=== PATIENT | female | born 1955 | race African-American/Black ===

== ENCOUNTER 2016-07-08 08:25 | Day surgery (SDC) | payer OTHER ==
[2016-07-07 15:57] VITALS: BMI 23.2
[2016-07-08] MEDS ORDERED: PROPOFOL 20 ML ONE (08:40)
[2016-07-08] MEDS ORDERED: ROCURONIUM BROMIDE 50 MG/5 ML VIAL ONE ×2 (08:42→10:56)
[2016-07-08] MEDS ORDERED: SUCCINYLCHOLINE CHLORIDE 200 MG/10 ML VIAL ONE (08:42)
[2016-07-08] MEDS ORDERED: LIDOCAINE HCL/PF 2% SDV 5ML VIAL ONE (08:42)
[2016-07-08] MEDS ORDERED: ATROPINE SO4 0.4 MG/1 ML VIAL ONE (08:43)
[2016-07-08] MEDS ORDERED: MIDAZOLAM HCL 2 MG/2 ML SINGLE DOSE VIAL ONE (09:35)
[2016-07-08] MEDS ORDERED: ceFAZolin SODIUM 1 GM VIAL ONE ×2 (10:00→14:39)
[2016-07-08] MEDS ORDERED: DEXAMETHASONE SOD PHOSPHATE 4 MG/1 ML VIAL ONE ×2 (10:01→13:13)
[2016-07-08] MEDS ORDERED: ONDANSETRON 4 MG/2 ML VIAL ONE ×2 (10:01→13:13)
[2016-07-08] MEDS ORDERED: ePHEDrine SULFATE 50 MG/1 ML AMPULE ONE (10:06)
[2016-07-08] MEDS ORDERED: HYDROmorphone HCL/PF 1 MG/ML VIAL (FOR PYXIS CHARGING ONLY) ONE (10:33)
[2016-07-08] MEDS ORDERED: ONDANSETRON 4 MG/2 ML VIAL IVPUSH PRN (10:37)
[2016-07-08] MEDS ORDERED: LACTATED RINGERS SOLUTION 1,000 ML IV SCH ×2 (10:45→14:00)
[2016-07-08] MEDS ORDERED: NEOSTIGMINE METHYLSULFATE 0.5 MG/ML - 10 ML MDV ONE (11:41)
[2016-07-08] MEDS ORDERED: GLYCOPYRROLATE 0.2 MG/1 ML VIAL ONE ×2 (11:43)
[2016-07-08] MEDS ORDERED: hydrALAZINE HCL 20 MG/ML VIAL ONE (12:02)
[2016-07-08] MEDS ORDERED: ONDANSETRON 4 MG/2 ML VIAL IVPB PRN (13:59)
[2016-07-08] MEDS ORDERED: morphine CARPU-JECT 10 MG/1 ML DISP.SYRIN IM PRN (14:00)
[2016-07-08] MEDS ORDERED: amLODIPine BESYLATE 5 MG TABLET (FP) PO PRN (14:04)
[2016-07-08] MEDS ORDERED: PROMETHAZINE HCL 25 MG/1 ML VIAL ONE (14:59)
--- NOTE | 2016-07-08 15:13 | SURG ---
Surgery Grubber Note Grubber: Royer Partida PA-C Date of Service: 07/08/16 Diagnosis: symptomatic macromastia Procedure: Bilateral breast reduction I was present for the entirety of the operative procedure. For further detail, please refer to operative report. Visit type - Case Type Case Type: Scheduled Admission - New patient This patient is new to me today: Yes Date on this admission: 07/08/16
[2016-07-08] MEDS ORDERED: PROMETHAZINE HCL 25 MG/1 ML VIAL IVPUSH ONE (15:30)
[2016-07-08] MEDS: CEFAZOLIN 1 GM/D5W 50 ML IVPB SCH ×2 (16:34→20:39)
[2016-07-08] MEDS: oxyCODONE HCL 5 MG TABLET PO PRN (20:40)
[2016-07-09] MEDS: oxyCODONE HCL 5 MG TABLET PO PRN ×2 (01:45→08:25)
--- NOTE | 2016-07-09 02:12 | OP ---
DATE OF OPERATION: 07/08/2016 PROCEDURE: Bilateral reduction mammoplasty. PREOPERATIVE DIAGNOSIS: Bilateral symptomatic macromastia. POSTOPERATIVE DIAGNOSIS: Bilateral symptomatic macromastia. DESCRIPTION OF PROCEDURE: Patient is marked for a McKissock style bipedicle-wood type pattern reduction. Nipple said to be 21 cm from the sternal notch bilaterally, marked in the holding area. Awake and aware of all incisions and resulting scars. Brought to the operating room, 1 g of Ancef was given preoperatively. Sequential compression stockings were applied. KELSEY hose were applied. Pressure points were carefully padded. Position checked by surgical anesthesia team. After anesthesia, she was prepped and draped in the standard surgical fashion. A timeout was called. The patient, procedure, side, and site verified. The nipples are traced with a 45-mm cookie cutter with the breast tourniquet. An 8-cm wide pedicle is de-epithelialized, which is continuous with the superior and inferior skin. The nipple areola is preserved after which a resection of skin and glandular tissue between pedicle and the resection pattern is then performed, first on the right side. Superior glandular tissue is removed; however, leaving a 2-cm width bridge of dermis and subdermal plexus between the superior pattern of skin and the nipple areola. A size 10 flat LOIS drain was brought in through the lateral extent of the incision. The skin is talar tacked in preparation for closure. Mirror image procedure was then performed on the left side. The resection weights, after which are on the right 214 g and the left 265 g. Both wounds were copiously irrigated with normal saline. Meticulous hemostasis is performed. Closure is then performed with a half-buried mattress 2-0 nylon suture at the inverted T-point. The vertical and horizontal limbs are closed with a series of buried deep dermal 3-0 Monocryl suture followed by a running subcuticular 3-0 Monocryl suture. The nipple areola was then set with a series of interrupted buried deep dermal 4-0 Monocryl suture followed by a running subcuticular 4-0 Monocryl suture. Please note that prior to closure, the pedicle was pexy in position along the medial portion of the breast with good medial fullness. Nipples are pink and viable prior to closure. The patient was dressed with 0.5-inch Steri-Strips, ABD gauze, and surgical bra. Drains were placed to bulb suction. Transferred to the recovery room without complication after being awoken. RIKY PAULSON M.D. COREY/[id number]
[2016-07-09] MEDS: CEFAZOLIN 1 GM/D5W 50 ML IVPB SCH ×2 (02:39→08:24)
[2016-07-09] MEDS ORDERED: NALOXONE HCL 0.4 MG/ML VIAL ONE (09:04)
--- NOTE | 2016-07-09 09:22 | RAPID ---
Physical Examination Vital Signs: Vital Signs Temperature 98.8 F 07/09/16 08:50 Pulse Rate 90 07/09/16 08:50 Respiratory Rate 18 07/09/16 08:50 Blood Pressure 106/62 07/09/16 08:50 O2 Sat by Pulse Oximetry (%) 97 07/09/16 06:31 Constitutional: Yes: Well Nourished, No Distress, Calm Eyes: Yes: WNL, Conjunctiva Clear, EOM Intact HENT: Yes: WNL, Atraumatic, Normocephalic Neck: Yes: WNL, Supple, Trachea Midline Cardiovascular: Yes: WNL, Regular Rate and Rhythm, S1, S2 Respiratory: Yes: WNL, Regular, CTA Bilaterally Gastrointestinal: Yes: WNL, Normal Bowel Sounds, Soft ...Rectal Exam: Yes: Deferred Breast(s): Yes: Other (billateral breast surgical site, clean dry and intact, no drainage noted, LOIS # 1, serrous sangeneous draingage LOIS #2 serrous sangenous drainage) Musculoskeletal: Yes: WNL Extremities: Yes: WNL Edema: No Rapid Response - Rapid Response Assessment: called to bedside, rapid response, as per Peggy YANG, Patient was ambulating to bathroom, she became lightheaded and lost consciousness for approximately 15 seconds. No seizure activity noted. arrived at bedside patient alert awake oriented 3, reports feeling well diaphoretic Outcome: patient returned to baseline Recommendations/Interventions: CBC and EKG CBC, BMP 07/09/16 09:33 EKG, nsr no ischemic changes noted Primary Physician Notified: Nicolás Napoles Time PMD Notified: 09:00 Critical Care Total Critical Care Time (in minutes): 45 Critical Care Statement: The care of this patient involved high complexity decision making to prevent further life threatening deterioration of the patient 's condition and/or to evalute & treat vital organ system(s) failure or risk of failure.
[2016-07-09 09:49] LABS: BASOPHIL 0.4 % (0-2.0); EOSINOPHIL 0.4 % (0-4.5); MCHC 31.5 g/dl (32.0-36.0); MEAN CELL VOLUME 88.9 fl (80-96); MEAN PLT VOLUME 7.6 fl (7.5-11.1); NEUTROPHILS 67.9 % (42.8-82.8); PLATELET COUNT 245 K/MM3 (134-434); WHITE BLOOD COUNT 10.2 K/mm3 (4.0-10.0)
--- NOTE | 2016-07-09 10:25 | PN ---
Progress Note (short form) - Note Progress Note: 60 F POD1 s/p b/l breast reduction under GA-ETT doing well. Pt had a pre- syncopal episode earlier today, feels better after IVF and oral intake. AVSS, pt states pain is well controlled, reports no anesthetic complications.
--- NOTE | 2016-07-09 10:48 | EKG ---
Test Reason : Blood Pressure : / mmHG Vent. Rate : 087 BPM Atrial Rate : 087 BPM P-R Int : 162 ms QRS Dur : 080 ms QT Int : 380 ms P-R-T Axes : 051 020 026 degrees QTc Int : 457 ms NORMAL SINUS RHYTHM POSSIBLE LEFT ATRIAL ENLARGEMENT NO PREVIOUS ECGS AVAILABLE Confirmed by LALO DENNIS MD ([id number]) on 07/09/2016 10:48:12 AM Referred By: Nicolás Napoles Confirmed By:LALO DENNIS MD
[2016-07-09 11:52] VITALS: BP 108/62; PULSE 82; TEMP 98.4
--- NOTE | 2016-07-13 15:50 | PATH ---
Surgical Pathology Report Patient Name: TYSHAWN AWAD [facility]. Rec. #: [id number] /Age/Gender: 1955 (Age: 60) / F Account: [id number] Location: [facility] Taken: 07/08/2016 Received: 07/08/2016 Reported: 07/13/2016 Physicians: Nicolás Napoles Specimen(s) Received A: RIGHT BREAST SKIN AND TISSUE B: LEFT BREAST SKIN AND TISSUE Clinical History Symptomatic macromastia Final Diagnosis A. BREAST TISSUE AND SKIN, RIGHT, REDUCTION: BREAST TISSUE SHOWING FEW FOCI OF ATYPICAL LOBULAR HYPERPLASIA (ALH), FIBROCYSTIC CHANGES AND COLUMNAR CELL CHANGES. (SEE NOTE) SKIN WITH NO PATHOLOGIC FINDINGS. B. BREAST TISSUE AND SKIN, LEFT, REDUCTION: BREAST TISSUE SHOWING FEW FOCI OF ATYPICAL LOBULAR HYPERPLASIA (ALH), FIBROCYSTIC CHANGES AND COLUMNAR CELL CHANGES. (SEE NOTE) SKIN WITH NO PATHOLOGIC FINDINGS. Note: The foci of ALH are negative for E-Cadherin; this finding supports the diagnosis. Electronically Signed Nola Mcdonough M.D. Gross Description A. Received in formalin, labeled "right breast skin and tissue," is a 349 g, 16.5 x 14.0 x 4.5 cm aggregate of multiple borden-yellow, irregular, unoriented portions of fibroadipose tissue and borden, unremarkable skin. Sectioning reveals foci of white fibrous tissue. Parts Counter Representative sections are submitted in 5 cassettes. B. Received in formalin, labeled "left breast skin and tissue," is a 302 g, 16.0 x 14.5 x 4.0 cm aggregate of multiple borden-yellow, irregular, unoriented portions of fibroadipose tissue and borden, unremarkable skin. Sectioning reveals foci of white fibrous tissue. Parts Counter Representative sections are submitted in 4 cassettes. DL/07/09/2016 saudi07/09/2016
== END 2016-07-09 13:45 | disposition home or self-care (01) ==
LOC: FASU 08:25 → FM/S 16:19 → FASU 07-09 13:45
PROVIDERS: ATTEND Plastic Surgery
PROC: 0HBV0ZZ Excision of Bilateral Breast, Open Approach (ICD-10-PCS; principal; 2016-07-08 10:06)
DX: N62 Hypertrophy of breast (principal)
CPT/HCPCS: 36415; 85025; 88305-TC; 88342-TC; 93005; 94010; 94760